=== PATIENT | female | born 1990 | race Two or more races ===

== ENCOUNTER 2025-04-07 08:46 | Emergency (ER) | payer BC, SELFPAY ==
[2025-04-07 08:47] VITALS: BP 129/91; PULSE 87; RESP 18; TEMP 36.7; O2SAT 99
[2025-04-07 08:48] VITALS: BMI 31.1
[2025-04-07 08:55] VITALS: PULSE 85; RESP 22; O2SAT 98
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
[2025-04-07] MEDS: HYDROcodone/APAP 5/325 TABLET 1 TAB PO (10:23)
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
== END 2025-04-07 11:18 | disposition home or self-care (01) ==
PROVIDERS: Emergency Provider Family Medicine; PCP Family Medicine
DX: S13.4XXA Sprain of ligaments of cervical spine, initial encounter (principal); S49.91XA Unspecified injury of right shoulder and upper arm, initial encounter; S29.9XXA Unspecified injury of thorax, initial encounter; S09.90XA Unspecified injury of head, initial encounter; V89.2XXA Person injured in unspecified motor-vehicle accident, traffic, initial encounter
CPT/HCPCS: 70450; 71046; 72125; 73030; 99283; A9270